=== PATIENT | female | born 2000 | race Caucasian/White ===

== ENCOUNTER → 2021-08-16 | Outpatient (CLI) | payer MEDICAID ==
[~2021-08-16] MED LIST: FIORICET 325 MG1 TAB PO; ZOFRAN ODT4 MG PO
== END ==
LOC: RAD 10:53
DX: E04.9 Nontoxic goiter, unspecified (principal)

== ENCOUNTER → 2021-10-05 | Outpatient (CLI) | payer MEDICAID ==
[2021-10-06 01:15] LABS: T3 TOTAL 105 ng/dL (35-193)
== END ==
LOC: LAB 14:31
DX: E06.9 Thyroiditis, unspecified (principal)

== ENCOUNTER → 2022-02-10 | Outpatient (CLI) | payer MEDICAID | LOC: LAB 11:49 | DX: E07.89 Other specified disorders of thyroid (principal) ==

== ENCOUNTER → 2022-06-24 | Outpatient (CLI) | payer MEDICAID | LOC: LAB 11:18 | DX: E03.9 Hypothyroidism, unspecified (principal) ==

== ENCOUNTER 2022-12-05 11:10 | Emergency (ER) | payer MEDICAID ==
[~2022-12-05] VITALS: Ht 167.6 cm; Wt 70.6 kg
[2022-12-05] MEDS ORDERED: EUTHYROX125 MCG PO (11:38)
[2022-12-05] MEDS ORDERED: PANTOPRAZOLE SO40 MG PO (11:38)
[2022-12-05] MEDS ORDERED: PRENATAL TABLE1 EAC2 PO (11:39)
[2022-12-05 12:42] LABS: ALBUMIN 4.2 g/dL (3.5-5.0); POTASSIUM 3.6 mmol/L (3.5-5.1); SODIUM 141 mmol/L (136-145)
[2022-12-05 12:45] LABS: GLUCOSE 68 mg/dL (65-105); TOTAL PROTEIN 6.6 g/dL (6.4-8.3)
[2022-12-05 12:46] LABS: CARBON DIOXIDE 22 mmol/L (22-29); TOTAL BILIRUBIN 0.5 mg/dL (0.2-1.2)
[2022-12-05 12:50] LABS: AST-SGOT 10 U/L (5-34)
[2022-12-05 12:51] LABS: ALT/SGPT 16 U/L (0-55)
[2022-12-05 13:00] LABS: TROPONIN-I < 0.030 ng/mL (<0.030)
[2022-12-05 13:15] LABS: BASO # 0.01 K/mm3 (0.02-0.10); EOS # 0.08 K/mm3 (0.04-0.40); EOS % 1.6 % (1.0-5.0); HEMATOCRIT 38.2 % (37.0-47.0); HEMOGLOBIN 12.9 g/dL (12.5-16.0); MEAN CELL VOLUME 80 fl (78-100); MEAN CORPUSCULAR HEMOGLOBIN 27 pg (27-31); MEAN CORPUSCULAR HGB CONC 34 g/dL (33-37); MEAN PLATELET VOLUME 10.4 fl (7.4-10.4); MONO # 0.32 K/mm3 (0.20-0.80); NEU # 3.34 K/mm3 (1.40-6.50); PLATELET COUNT 223 K/mm3 (130-400); RED BLOOD COUNT 4.78 M/mm3 (4.10-5.30); RED CELL DISTRIBUTION WIDTH 12.4 % (11.5-14.5); WHITE BLOOD COUNT 5.1 K/mm3 (4.8-10.8)
[2022-12-05 13:57] VITALS: BP 103/71
== END 2022-12-05 13:58 | disposition home or self-care (01) ==
LOC: ED 11:10
PROVIDERS: Physician Assistant
DX: R53.83 Other fatigue (principal); R07.89 Other chest pain; R53.1 Weakness; Z90.89 Acquired absence of other organs; F17.290 Nicotine dependence, other tobacco product, uncomplicated; Z28.310 Unvaccinated for COVID-19

== ENCOUNTER 2023-04-28 09:54 | Emergency (ER) | payer MEDICAID ==
[~2023-04-28] VITALS: Ht 167.6 cm; Wt 67.7 kg
[~2023-04-28 09:54] MED LIST changes: +EUTHYROX125 MCG PO; +PANTOPRAZOLE SO40 MG PO; +PRENATAL TABLE1 EAC2 PO
[2023-04-28 10:46] LABS: BASO # 0.03 K/mm3 (0.02-0.10); EOS # 0.11 K/mm3 (0.04-0.40); EOS % 2.1 % (1.0-5.0); HEMATOCRIT 41.2 % (37.0-47.0); HEMOGLOBIN 13.8 g/dL (12.5-16.0); LYMPH# 0.94 K/mm3 (1.50-4.00); MEAN CELL VOLUME 81 fl (78-100); MEAN CORPUSCULAR HEMOGLOBIN 27 pg (27-31); MEAN CORPUSCULAR HGB CONC 34 g/dL (33-37); MEAN PLATELET VOLUME 10.3 fl (7.4-10.4); NEU # 3.94 K/mm3 (1.40-6.50); PLATELET COUNT 253 K/mm3 (130-400); RED BLOOD COUNT 5.08 M/mm3 (4.10-5.30); RED CELL DISTRIBUTION WIDTH 12.1 % (11.5-14.5); WHITE BLOOD COUNT 5.3 K/mm3 (4.8-10.8)
[2023-04-28 10:52] LABS: URINE APPEARANCE CLOUDY; URINE BILIRUBIN NEGATIVE (NEGATIVE); URINE BLOOD 50 ery/uL (NEGATIVE); URINE COLOR YELLOW; URINE GLUCOSE NEGATIVE (NEGATIVE); URINE KETONE NEGATIVE (NEGATIVE); URINE LEUKOCYTE ESTERASE 1+ (NEGATIVE); URINE NITRATE NEGATIVE (NEGATIVE); URINE PROTEIN(semi-quant) TRACE (NEGATIVE); URINE UROBILINOGEN NORMAL (NORMAL); URINE WBC 16-30 /hpf (0-3)
[2023-04-28 10:53] LABS: URINE MUCUS PRESENT (NOT PRESENT)
[2023-04-28 10:57] LABS: POTASSIUM 3.9 mmol/L (3.5-5.1)
[2023-04-28 10:58] LABS: CALCIUM 9.4 mg/dL (8.3-10.5)
[2023-04-28] MEDS ORDERED: SEPTRA DS 8001 TAB PO (12:04)
[2023-04-28 12:45] VITALS: BP 119/75
== END 2023-04-28 12:40 | disposition home or self-care (01) ==
LOC: ED 09:54
PROVIDERS: Family Medicine
DX: N39.0 Urinary tract infection, site not specified (principal); M54.50 Low back pain, unspecified; Z28.310 Unvaccinated for COVID-19

== ENCOUNTER → 2024-06-02 | Outpatient (CLI) | payer MEDICAID ==
[~2024-06-02] MED LIST changes: +ACETAMINOPHEN-H1 TA2 PO; +CEPHALEXIN500 M1 PO; +SEPTRA DS 8001 TAB PO
== END ==
LOC: LAB 11:11
DX: R59.0 Localized enlarged lymph nodes (principal); M79.10 Myalgia, unspecified site

== ENCOUNTER 2024-09-02 06:51 | Emergency (ER) | payer MEDICAID ==
[~2024-09-02] VITALS: Ht 167.6 cm; Wt 72.7 kg
[2024-09-02] MEDS ORDERED: LIOTHYRONINE SO5 MCG PO (06:54)
[2024-09-02] MEDS ORDERED: Lidocaine 4% Topical Patch TP ONE (07:30)
[2024-09-02] MEDS ORDERED: NS 1,000 ML IV SCH ×2 (07:30→10:30)
[2024-09-02] MEDS ORDERED: droPERidol 2.5 MG/ML 2 ML VIAL IV ONE (07:30)
[2024-09-02] MEDS ORDERED: Morphine 4 MG/ML VIAL IV ONE (07:45)
[2024-09-02 07:52] LABS: BASO # 0.02 K/mm3 (0.02-0.10); EOS # 0.04 K/mm3 (0.04-0.40); EOS % 0.5 % (1.0-5.0); HEMATOCRIT 34.4 % (37.0-47.0); HEMOGLOBIN 11.8 g/dL (12.5-16.0); LYMPH# 1.11 K/mm3 (1.50-4.00); MEAN CELL VOLUME 80 fl (78-100); MEAN CORPUSCULAR HEMOGLOBIN 28 pg (27-31); MEAN CORPUSCULAR HGB CONC 34 g/dL (33-37); MEAN PLATELET VOLUME 9.8 fl (7.4-10.4); MONO # 0.33 K/mm3 (0.20-0.80); NEU # 7.13 K/mm3 (1.40-6.50); PLATELET COUNT 209 K/mm3 (130-400); RED BLOOD COUNT 4.29 M/mm3 (4.10-5.30); RED CELL DISTRIBUTION WIDTH 12.6 % (11.5-14.5); WHITE BLOOD COUNT 8.7 K/mm3 (4.8-10.8)
[2024-09-02 08:05] LABS: ALBUMIN 3.9 g/dL (3.5-5.0); SODIUM 141 mmol/L (136-145)
[2024-09-02 08:06] LABS: CALCIUM 8.4 mg/dL (8.3-10.5)
[2024-09-02 08:07] LABS: GLUCOSE 123 mg/dL (65-105)
[2024-09-02 08:08] LABS: TOTAL PROTEIN 5.9 g/dL (6.4-8.3)
[2024-09-02 08:09] LABS: CARBON DIOXIDE 20 mmol/L (22-29); TOTAL BILIRUBIN 0.6 mg/dL (0.2-1.2)
[2024-09-02 08:13] LABS: AST-SGOT 12 U/L (5-34)
[2024-09-02 08:14] LABS: ALT/SGPT 10 U/L (0-55)
[2024-09-02] MEDS ORDERED: Iohexol 300 - 100 ML VIAL IV ONE (08:36)
[2024-09-02 09:01] LABS: URINE APPEARANCE CLEAR (CLEAR); URINE BILIRUBIN NEGATIVE (NEGATIVE); URINE BLOOD TRACE (NEGATIVE); URINE COLOR YELLOW (YELLOW); URINE GLUCOSE NEGATIVE (NEGATIVE); URINE KETONE NEGATIVE (NEGATIVE); URINE LEUKOCYTE ESTERASE NEGATIVE (NEGATIVE); URINE MUCUS PRESENT (NOT PRESENT); URINE NITRATE NEGATIVE (NEGATIVE); URINE PROTEIN(semi-quant) NEGATIVE (NEGATIVE)
[2024-09-02] MEDS ORDERED: Morphine 4 MG/ML VIAL IV PRN (10:30)
[2024-09-02] MEDS ORDERED: Potassium Chloride 100 ML IV SCH (10:30)
[2024-09-02 13:10] VITALS: BP 122/89
== END 2024-09-02 13:05 | disposition home or self-care (01) ==
LOC: ED 06:51
PROVIDERS: Physician Assistant
DX: N13.2 Hydronephrosis with renal and ureteral calculous obstruction (principal); E87.6 Hypokalemia; M54.9 Dorsalgia, unspecified; G89.29 Other chronic pain; Z90.49 Acquired absence of other specified parts of digestive tract
CPT/HCPCS: J1790; J2270; J3480; J7030; Q9967